=== PATIENT | female | born 1985 | race African-American/Black ===

== ENCOUNTER 2017-05-02 16:04 | Emergency (ER) | payer SELFPAY ==
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
[2017-05-02] MEDS ORDERED: IBUPROFEN 600 MG TABLET PO ONE (17:12)
[2017-05-02 17:47] LABS: APPEARANCE,URINE CLEAR; BILIRUBIN,URINE NEGATIVE (NEGATIVE); GLUCOSE, URINE NEGATIVE (NEGATIVE); KETONES,URINE TRACE mg/dL (NEGATIVE); LEUKOCYTE ESTERASE,URINE NEGATIVE (NEGATIVE); NITRITE,URINE NEGATIVE (NEGATIVE); PROTEIN,URINE NEGATIVE (NEGATIVE); URINE SPECIFIC GRAVITY 1.026; UROBILINOGEN,URINE NEGATIVE mg/dL (<2.0)
--- NOTE | 2017-05-02 18:42 | RADIOLOGY REPORT (SQ) ---
EXAM DESCRIPTION: U/S NON-OB PELVIS TV W/O DOP COMPLETED DATE/TIME: 05/02/2017 6:32 pm REASON FOR STUDY: pelvic pain from recently placed IUD COMPARISON: None. TECHNIQUE: Dynamic and static grayscale images acquired of the pelvis via transvaginal approach and recorded on PACS. Additional selected color Doppler and spectral images recorded. LIMITATIONS: None. FINDINGS: UTERUS: Contour normal. No mass. Intrauterine IUD is identified. ENDOMETRIAL STRIPE: No focal or generalized thickening. No masses. CERVIX: No nabothian cysts. RIGHT OVARY: Small cyst is identified measuring 1.7 x 1.6 x 1.6 cm. A complex area is identified thang suring 1.1 x 1.5 x 1.1 cm in diameters. This most likely represents a small complicated cyst however other etiologies including a small endometrioma cannot be excluded. RIGHT OVARY DOPPLER: Normal arterial vascular flow without evidence for torsion. LEFT OVARY: Complex cyst is identified measuring 1.5 x 1.3 x 1.7 cm in diameters. LEFT OVARY DOPPLER: Normal arterial vascular flow without evidence for torsion. FREE FLUID: Small amount of free fluid is identified in the posterior cul-de-sac. OTHER: No other significant finding. MEASUREMENTS: UTERUS: 8.9 x 4.6 x 4.0 cm in diameters. ENDOMETRIAL STRIPE: 5 mm RIGHT OVARY: 1.9 x 1.8 x 2.8 cm in diameters. LEFT OVARY: 2.7 x 2.5 x 3.1 cm in diameters. IMPRESSION: Intrauterine IUD is identified. Small bilateral ovarian cysts as noted above. Other fi ndings as noted above. TECHNICAL DOCUMENTATION: JOB ID: [id number] [employer]- All Rights Reserved
--- NOTE | 2017-05-02 19:43 | ER Document Report ---
ED GI/ - General Chief Complaint: Abdominal Pain Stated Complaint: ABDOMINAL PAIN,VAGINAL PAIN Time Seen by Provider: 05/02/17 17:08 Mode of Arrival: Wheelchair Information source: Patient Notes: Patient states that she recently had an IUD placed 10 days ago. Patient states since then she has had pelvic cramping that radiates into her thighs, nausea and vomiting 2 episodes today. Patient states that the pain worsened today. Patient reports fever of 101 at home. Patient reports foul-smelling vaginal bleeding. Patient states she received pain medication in triage and now her pain symptoms are resolved. TRAVEL OUTSIDE OF THE [place] IN LAST 30 DAYS: No - HPI Patient complains to provider of: Pelvic pain, Vaginal bleeding, Vomiting. No: Diarrhea, Dysuria Onset: Other - 10 days Timing/Duration: Persistent, Worse Quality of pain: Sharp Severity at maximum: Moderate Severity in ED: None Pain Level: Denies Location: Pelvis Associated symptoms: Fever, Nausea, Odor, Vomiting. denies: Dysuria, Urinary hesitancy, Urinary frequency, Urinary retention, Urinary urgency, Vaginal discharge Exacerbated by: Denies Relieved by: Denies Similar symptoms previously: No Recently seen / treated by doctor: No - Related Data Allergies/Adverse Reactions: No Known Allergies Allergy (Verified 05/02/17 16:27) Past Medical History - General Information source: Patient - Social History Smoking Status: Never Smoker Chew tobacco use (# tins/day): No Frequency of alcohol use: None Drug Abuse: None Family History: Reviewed & Not Pertinent - Medical History Medical History: Negative Renal/ Medical History: Denies: Hx Peritoneal Dialysis Surgical Hx: Negative Review of Systems - Review of Systems Constitutional: Fever. denies: Recent illness EENT: No symptoms reported Cardiovascular: No symptoms reported Respiratory: No symptoms reported. denies: Cough, Short of breath Gastrointestinal: Abdominal pain, Nausea, Vomiting. denies: Diarrhea Genitourinary: No symptoms reported. denies: Dysuria, Flank pain Female Genitourinary: Vaginal bleeding, Vaginal odor Musculoskeletal: No symptoms reported. denies: Back pain Skin: No symptoms reported Hematologic/Lymphatic: No symptoms reported Neurological/Psychological: No symptoms reported Physical Exam - Vital signs Vitals: Temp Pulse Resp BP Pulse Ox 98.6 F 81 20 118/57 L 100 05/02/17 16:25 05/02/17 16:25 05/02/17 16:25 05/02/17 16:25 05/02/17 16:25 - General General appearance: Appears well, Alert In distress: None - HEENT Head: Normocephalic, Atraumatic Eyes: Normal Nasal: Normal Mouth/Lips: Normal Mucous membranes: Normal Neck: Normal, Supple. No: Lymphadenopathy - Respiratory Respiratory status: No respiratory distress Chest status: Nontender Breath sounds: Normal. No: Rales, Rhonchi, Stridor, Wheezing Chest palpation: Normal - Cardiovascular Rhythm: Regular Heart sounds: S1 appreciated, S2 appreciated Murmur: No - Abdominal Inspection: Normal Distension: No distension Bowel sounds: Normal Tenderness: Tender - Epigastric, lower pelvic tenderness Organomegaly: No organomegaly - Genitourinary External exam: Normal Speculum exam: Cervix closed, Other - cervix friable Vaginal bleeding: Mild Bimanuel exam: Cervical motion tender, Adnexal tenderness Notes: pct [place] as standby, IUD removed with gentle traction - Back Back: Normal, Nontender. No: CVA tenderness - Extremities General upper extremity: Normal inspection, Nontender, Normal ROM General lower extremity: Normal inspection, Nontender, Normal ROM - Neurological Neuro grossly intact: Yes Cognition: Normal Natalie Coma Scale Eye Opening: Spontaneous Spicer Coma Scale Verbal: Oriented Natalie Coma Scale Motor: Obeys Commands Natalie Coma Scale Total: 15 - Psychological Associated symptoms: Normal affect, Normal mood - Skin Skin Temperature: Warm Skin Moisture: Dry Skin Color: Normal Course - Re-evaluation Re-evalutation: 05/02/17 21:[address] Jacome regarding patient presentation and ultrasound report. Agrees with plan for outpatient follow-up with [facility]. 05/02/17 21:55 Discussed worsening signs or symptoms that patient should return immediately for. Patient advised that she will need a backup method of control. Copies of her radiology report as well as her laboratory tests provided to patient. - Vital Signs Vital signs: Temp Pulse Resp BP Pulse Ox 98.6 F 80 18 115/65 100 05/02/17 16:25 05/02/17 22:45 05/02/17 22:45 05/02/17 22:45 05/02/17 22:45 - Laboratory Result Diagrams: 05/02/17 21:00 05/02/17 21:00 Laboratory results interpreted by me: 0905/02/17 05/02/17 17:20 20:45 21:00 Hgb 11.8 L Seg Neutrophils % 82.0 H Sodium Urine Ketones TRACE H Urine Blood SMALL H Chlamydia DNA (PCR) DETECTED H 05/02/17 21:00 Hgb Seg Neutrophils % Sodium 136.0 L Urine Ketones Urine Blood Chlamydia DNA (PCR) 05/02/17 21:55 Labs- Entire Visit 05/02/17 05/02/17 05/02/17 17:20 20:45 21:00 WBC 8.7 RBC 4.15 Hgb 11.8 L Hct 36.1 MCV 87 MCH 28.5 MCHC 32.8 RDW 13.5 Plt Count 303 Seg Neutrophils % 82.0 H Lymphocytes % 13.2 Monocytes % 4.4 Eosinophils % 0.2 Basophils % 0.2 Absolute Neutrophils 7.1 Absolute Lymphocytes 1.1 Absolute Monocytes 0.4 Absolute Eosinophils 0.0 Absolute Basophils 0.0 Sodium Potassium Chloride Carbon Dioxide Anion Gap BUN Creatinine Est GFR ( Amer) Est GFR (Non-Af Amer) Glucose Calcium Total Bilirubin Direct Bilirubin Indirect Bilirubin Neonat Total Bilirubin AST ALT Alkaline Phosphatase Total Protein Albumin Lipase Urine Color YELLOW Urine Appearance CLEAR Urine pH 6.0 Ur Specific [place] 1.026 Urine Protein NEGATIVE Urine Glucose (UA) NEGATIVE Urine Ketones TRACE H Urine Blood SMALL H Urine Nitrite NEGATIVE Urine Bilirubin NEGATIVE Urine Urobilinogen NEGATIVE Ur Leukocyte Esterase NEGATIVE Urine WBC (Auto) 2 Urine RBC (Auto) 10 Squamous Epi Cells Auto 2 Urine Mucus (Auto) RARE Urine Ascorbic Acid NEGATIVE Urine HCG, Qual NEGATIVE Bacteria (Wet Prep) 3+ BACTERIA SEEN Trichomonas (Wet Prep) NO TRICHOMONAS SEEN Vaginal WBC 4+ WBCS SEEN Vaginal RBC 2+ RBCS SEEN Vaginal Yeast NO YEAST SEEN 05/02/17 21:00 WBC RBC Hgb Hct MCV MCH MCHC RDW Plt Count Seg Neutrophils % Lymphocytes % Monocytes % Eosinophils % Basophils % Absolute Neutrophils Absolute Lymphocytes Absolute Monocytes Absolute Eosinophils Absolute Basophils Sodium 136.0 L Potassium 3.8 Chloride 103 Carbon Dioxide 24 Anion Gap 9 BUN 10 Creatinine 0.76 Est GFR ( Amer) > 60 Est GFR (Non-Af Amer) > 60 Glucose 91 Calcium 9.3 Total Bilirubin 0.6 Direct Bilirubin 0.3 Indirect Bilirubin Not Reportable Neonat Total Bilirubin Not Reportable AST 16 ALT 24 Alkaline Phosphatase 108 Total Protein 7.0 Albumin 4.0 Lipase 62.8 Urine Color Urine Appearance Urine pH Ur Specific [place] Urine Protein Urine Glucose (UA) Urine Ketones Urine Blood Urine Nitrite Urine Bilirubin Urine Urobilinogen Ur Leukocyte Esterase Urine WBC (Auto) Urine RBC (Auto) Squamous Epi Cells Auto Urine Mucus (Auto) Urine Ascorbic Acid Urine HCG, Qual Bacteria (Wet Prep) Trichomonas (Wet Prep) Vaginal WBC Vaginal RBC Vaginal Yeast - Diagnostic Test Radiology reviewed: Reports reviewed Discharge - Discharge Clinical Impression: Encounter for IUD removal, Pelvic pain, PID (acute pelvic inflammatory disease) Ovarian cyst Qualifiers: Laterality: bilateral Qualified Code(s): N83.201 - Unspecified ovarian cyst, right side Condition: Stable Disposition: HOME, SELF-CARE Instructions: Abdominal Pain ([facility]), Anti-Inflammatory Medication ([facility]), Doxycycline ([facility]), Pelvic Inflammatory Disease ([facility]), Pelvic Pain ([facility]), Rocephin ([facility]) Additional Instructions: Return immediately for any new or worsening symptoms Followup with your primary care provider, call tomorrow to make a followup appointment Follow-up with a stage manager for recheck, call tomorrow for an appointment Prescriptions: Doxycycline Hyclate 100 mg PO BID #28 capsule Naproxen [Naprosyn 250 Nmg Tablet] 1 tab PO BID #14 tablet Forms: Return to Work Referrals: [facility] [Provider Group] - Follow up as needed
[2017-05-02] MEDS ORDERED: DOXYCYCLINE HYCLATE 100 MG TABLET PO ONE (20:42)
[2017-05-02] MEDS ORDERED: LIDOCAINE 1% INJ-PF (10 MG/ML) 30 ML SDV INJ ONE (20:42)
[2017-05-02] MEDS ORDERED: CEFTRIAXONE INJ 1000 MG VIAL IM ONE (20:42)
[2017-05-02 21:21] LABS: ABSOLUTE LYMPHOCYTES (AUTO) 1.1 10^3/uL (0.5-4.7); ABSOLUTE MONOCYTES (AUTO) 0.4 10^3/uL (0.1-1.4); ABSOLUTE NEUT (AUTO) 7.1 10^3/uL (1.7-8.2); BASOPHILS % (AUTO) 0.2 % (0-2); EOSINOPHILS % (AUTO) 0.2 % (0-6); HEMATOCRIT 36.1 % (36.0-47.0); HEMOGLOBIN 11.8 g/dL (12.0-15.5); HGB HCT DIFFERENCE -0.7; LYMPHOCYTES % (AUTO) 13.2 % (13-45); MEAN CORPUSCULAR HEMOGLOBIN 28.5 pg (27.0-33.4); MEAN CORPUSCULAR HGB CONC 32.8 g/dL (32.0-36.0); MEAN CORPUSCULAR VOLUME 87 fl (80-97); MONOCYTES % (AUTO) 4.4 % (3-13); RED BLOOD COUNT 4.15 10^6/uL (3.72-5.28); RED CELL DISTRIBUTION WIDTH 13.5 % (11.5-14.0); WHITE BLOOD COUNT 8.7 10^3/uL (4.0-10.5)
[2017-05-02 21:39] LABS: ALANINE AMINOTRANSFERASE 24 U/L (9-52); ALKALINE PHOSPHATASE 108 U/L (38-126); ANION GAP 9 (5-19); ASPARTATE AMINO TRANSFERASE 16 U/L (14-36); BILIRUBIN,DIRECT 0.3 mg/dL (0.0-0.4); BILIRUBIN,TOTAL 0.6 mg/dL (0.2-1.3); BLOOD UREA NITROGEN 10 mg/dL (7-20); CALCIUM 9.3 mg/dL (8.4-10.2); CARBON DIOXIDE 24 mmol/L (22-30); CHLORIDE 103 mmol/L (98-107); CREATININE RESULT 0.76 mg/dL (0.52-1.25); GLUCOSE 91 mg/dL (75-110); LIPASE 62.8 U/L (23-300); POTASSIUM 3.8 mmol/L (3.6-5.0)
[2017-05-02 22:46] VITALS: BP 115/65
[2017-05-02 22:54] LABS: CHLAM PCR DETECTED (NOT DETECT)
== END 2017-05-02 22:45 | disposition home or self-care (01) ==
LOC: ER 16:04
DX: N83.201 Unspecified ovarian cyst, right side (principal); N73.9 Female pelvic inflammatory disease, unspecified; R10.9 Unspecified abdominal pain; R10.2 Pelvic and perineal pain; R50.9 Fever, unspecified
CPT/HCPCS: 99284; 96372; 36415; 87210; 83690; 85025; 81025; 80053; 81001; 87491; 87591; 76830; J3490; J0696